=== PATIENT | male | born 1960 | race Two or more races ===

== ENCOUNTER 2018-08-05 11:51 | Day surgery (SDC) | payer OTHER ==
[~2018-08-05 11:51] MED LIST: ANTI-HYPERTENSIVE; BAYER CHEWABLE81 MG PO; CHOLESTEROL MED; EZET10 PO; HYDACE5; INVOKANA100 MG PO; LOSARTAN-HCTZ1 EAC1 PO; METF500C PO; NAPROSYN; OMEG1CAP30 PO; PANT40 PO; PARO10 PO; PARO20 PO; PEPCID; PIOG45 PO; PSEU120ER PO; ROSU10TA PO
--- NOTE | 2018-08-05 12:40 | NUR ---
Ambulatory in Day Surgery. SERINA answers to either Serina or Geo, says most people call him Geo. Patient states colon prep results clear. History, Chart, Medications and Allergies reviewed before start of procedure. Lungs clear T/O to Auscultation. Pre-Op teaching done. Pt verbalizes understanding. Patient confirms NPO status and agrees with scheduled surgery. Patient States Post-Procedure ride home has been arranged.
--- NOTE | 2018-08-05 13:49 | NUR ---
08/05/18 1349 Rosalio Manuel History, Chart, Medications and Allergies reviewed before start of procedure.MONITOR INTACT WITH CONTINUOUS PULSE OXIMETRY AND INTERMITTENT BP.3-LEAD EKG REVIEWED WITH PHYSICIAN PRIOR TO START OF PROCEDURE.Patient confirms NPO status and agrees with scheduled surgery.O2 VIA N/C INTACT THROUGHOUT SEDATION/PROCEDURE. PATIENT DETERMINED TO BE ASA APPROPRIATE FOR PROPOFOL SEDATION PRIOR TO START OF PROCEDURE BY DR. NAVARRO.
--- NOTE | 2018-08-05 15:24 | NUR ---
Patient up to Ambulate independently. Gait steady. Discharge instructions reviewed with patient. Patient verbalizes understanding. Copy given to patient to take home. Patient States Post-Procedure ride home has been arranged. Discharged via wheelchair to private car for ride home.
== END 2018-08-05 23:05 | disposition home or self-care (01) ==
LOC: ORSCMMR 11:51 → ORD 13:15 → ORSCMMR 23:05
PROVIDERS: Student in an Organized Health Care Education/Training Program
PROC: 0DJD8ZZ Inspection of Lower Intestinal Tract, Via Natural or Artificial Opening Endoscopic (ICD-10-PCS; principal; 2018-08-05 13:15)
DX: Z12.11 Encounter for screening for malignant neoplasm of colon (principal); D64.9 Anemia, unspecified; K92.1 Melena; K64.8 Other hemorrhoids; E11.9 Type 2 diabetes mellitus without complications; I10 Essential (primary) hypertension; E78.5 Hyperlipidemia, unspecified; F41.8 Other specified anxiety disorders; Z87.891 Personal history of nicotine dependence; E66.9 Obesity, unspecified; Z68.36 Body mass index [BMI] 36.0-36.9, adult; Z79.84 Long term (current) use of oral hypoglycemic drugs; Z79.899 Other long term (current) drug therapy
CPT/HCPCS: 82947; J2250; J2704; J7120

== ENCOUNTER 2024-09-10 15:09 | Emergency (ER) | payer OTHER, MEDICARE ==
[~2024-09-10] VITALS: Ht 182.9 cm; Wt 104.3 kg
[~2024-09-10 15:09] MED LIST changes: +Crestor40 MG PO; +PIOG30 PO
[2024-09-10 15:41] VITALS: BP 126/74
[2024-09-10] MEDS ORDERED: OMEP20ER PO (17:03)
[2024-09-10] MEDS ORDERED: ROSUVASTATIN CA40 MG PO (17:03)
[2024-09-10] MEDS ORDERED: METF500 (17:04)
[2024-09-10] MEDS ORDERED: IBUP600 PO (17:13)
== END 2024-09-10 17:35 | disposition home or self-care (01) ==
LOC: ER 15:09
DX: S46.911A Strain of unspecified muscle, fascia and tendon at shoulder and upper arm level, right arm, initial encounter (principal); M19.011 Primary osteoarthritis, right shoulder; M67.911 Unspecified disorder of synovium and tendon, right shoulder; E11.9 Type 2 diabetes mellitus without complications; V48.5XXA Car driver injured in noncollision transport accident in traffic accident, initial encounter; Z79.899 Other long term (current) drug therapy; Z79.84 Long term (current) use of oral hypoglycemic drugs
CPT/HCPCS: 73030; 99284-25